=== PATIENT | male | born 1990 | race Caucasian/White ===

== ENCOUNTER → 2024-12-25 | Outpatient (CLI) | payer MEDICAID, SELFPAY ==
--- NOTE | 2024-12-25 14:53 | XR_ITS ---
Examination: PA lateral chest 2 views TECHNIQUE: Upright PA lateral chest 2 views Exam date and time: December 25, 2024 1507 hours INDICATIONS: History left lung pulmonary nodule noticed in July 2024 FINDINGS: Normal heart size Lungs are clear The osseous structures are intact IMPRESSION: No pneumonia or pulmonary edema pulmonary nodules identified, consider CT chest without intravenous contrast follow-up
== END | disposition home or self-care (01) ==
PROVIDERS: PCP Nurse Practitioner Primary Care; Referring Provider Nurse Practitioner Primary Care; Visit Provider Nurse Practitioner Primary Care
DX: R91.1 Solitary pulmonary nodule (principal)
CPT/HCPCS: 71046